=== PATIENT | male | born 1965 | race Caucasian/White ===

== ENCOUNTER 2025-01-10 13:33 | Emergency (ER) | payer BC ==
[2025-01-10] MEDS: Acetaminophen/oxyCODONE 325-5 MG Tab PO ONE (15:01)
== END 2025-01-10 15:25 | disposition home or self-care (01) ==
LOC: JD.ED 13:33
DX: S91.332A Puncture wound without foreign body, left foot, initial encounter (principal); Z88.1 Allergy status to other antibiotic agents; Z91.010 Allergy to peanuts; Z91.013 Allergy to seafood; Z91.018 Allergy to other foods; Z91.09 Other allergy status, other than to drugs and biological substances; E11.9 Type 2 diabetes mellitus without complications; W45.0XXA Nail entering through skin, initial encounter
CPT/HCPCS: 73630; 99283; A9270